=== PATIENT | male | born 1970 | race American Indian/Alaskan Native ===

== ENCOUNTER 2022-02-12 17:49 | Emergency (ER) | payer SELFPAY ==
[2022-02-12] MEDS ORDERED: ASPIRIN 81 MG TAB CHEW PO ONE (18:15)
--- NOTE | 2022-02-12 18:45 | XRay Report ---
CHEST 2 VIEWS INDICATION / CLINICAL INFORMATION: chest pain. FINDINGS: SUPPORT DEVICES: None. HEART / MEDIASTINUM: No significant abnormality. LUNGS / PLEURA: No significant pulmonary or pleural abnormality. No pneumothorax. ADDITIONAL FINDINGS: No significant additional findings. IMPRESSION: 1. No acute findings. Signer Name: Alexis Teixeira MD Signed: 02/12/2022 6:41 PM Workstation Name: [id number]
[2022-02-12 19:25] LABS: Basophils # (Auto) 0.1 K/mm3 (0.0-0.1); Eosinophils # (Auto) 0.1 K/mm3 (0.0-0.4); Eosinophils % (Auto) 2.4 % (0.0-4.3); Hematocrit 46.3 % (35.5-45.6); Hemoglobin 15.5 gm/dl (11.8-15.2); Lymphocytes % (Auto) 26.5 % (13.4-35.0); Mean Corpuscular HGB Conc 34 % (32-34); Mean Corpuscular Volume 87 fl (84-94); Monocytes # (Auto) 0.4 K/mm3 (0.0-0.8); Monocytes % (Auto) 11.5 % (0.0-7.3); Platelet Count 213 K/mm3 (140-440); Red Blood Count 5.29 M/mm3 (3.65-5.03); Red Cell Distribution Width 14.1 % (13.2-15.2)
[2022-02-12 19:41] LABS: Alanine Aminotransferase 19 units/L (7-56); Albumin 4.7 g/dL (3.9-5); BUN/Creatinine Ratio 19; Blood Urea Nitrogen 15 mg/dL (9-20); Hemolysis Index 5
--- NOTE | 2022-02-12 19:41 | Emergency Department Report ---
ED Chest Pain HPI - General Chief Complaint: Chest Pain Stated Complaint: CHEST/BACK PAIN/HBP Time Seen by Provider: 02/12/22 19:10 Source: patient Mode of arrival: Ambulatory Limitations: No Limitations - History of Present Illness Initial Comments: Chief complaint: Chest pain back pain HPI: This a 51-year-old male with history of tobacco and alcohol dependence who presents with chest pain and back pain for the last 3 days. He has chest and back burning sensation when he walks. No symptoms at rest. He denies shortness of breath. Denies recent travel. Denies nausea vomiting. No family history of heart attack. There is a family history of diabetes and hypertension. Patient smokes cigarettes 1 pack/day. He drinks 3 cups of alcohol daily. He does not have a primary physician. MD Complaint: chest pain -: Gradual, days(s) (3 days) Onset: during exertion Pain Location: substernal Pain Radiation: back Severity scale (0 -10): 8 Quality: other (Burning sensation) Consistency: intermittent, now resolved Improves With: rest Worsens With: exertion Treatments Prior to Arrival: none - Related Data Allergies Allergy/AdvReac Type Severity Reaction Status Date / Time No Known Allergies Allergy Unverified 02/12/22 17:56 Heart Score - HEART Score History: Slightly suspicious EKG: Normal Age: 45-65 Risk factors: 1-2 risk factors Troponin: < normal limit HEART Score: 2 - EKG Read Time Time EKG Completed: 18:12 EKG Read Time: 18:17 - Critical Actions Critical Actions: 0-3 pts:0.9-1.7%risk of adverse cardiac event.Candidate for discharge ED Review of Systems ROS: Stated complaint: CHEST/BACK PAIN/HBP Other details as noted in HPI Comment: All other systems reviewed and negative Constitutional: denies: chills, fever, malaise Respiratory: denies: cough, shortness of breath Cardiovascular: chest pain Gastrointestinal: denies: abdominal pain, nausea, vomiting Musculoskeletal: back pain ED Past Medical Hx - Past Medical History Previous Medical History?: No - Surgical History Past Surgical History?: No - Family History Family history: diabetes, hypertension - Social History Smoking Status: Current Every Day Smoker Substance Use Type: Alcohol ED Physical Exam - General Limitations: No Limitations General appearance: alert, in no apparent distress - Head Head exam: Present: atraumatic, normocephalic - Eye Eye exam: Present: PERRL, conjunctival injection. Absent: scleral icterus - ENT ENT exam: Present: mucous membranes moist - Neck Neck exam: Present: normal inspection, full ROM - Respiratory Respiratory exam: Present: normal lung sounds bilaterally. Absent: respiratory distress, wheezes, rales, rhonchi - Cardiovascular Cardiovascular Exam: Present: regular rate, normal rhythm, normal heart sounds. Absent: systolic murmur, diastolic murmur, rubs, gallop - GI/Abdominal GI/Abdominal exam: Present: soft, normal bowel sounds. Absent: distended, tenderness, guarding, rebound - Rectal Rectal exam: Present: deferred - Extremities Exam Extremities exam: Present: normal inspection - Back Exam Back exam: Present: normal inspection, full ROM - Neurological Exam Neurological exam: Present: alert, oriented X3 - Psychiatric Psychiatric exam: Present: normal affect, normal mood - Skin Skin exam: Present: warm, dry, intact, normal color. Absent: rash ED Course Vital Signs 02/12/22 18:00 Temperature 97.4 F L Pulse Rate 66 Respiratory 18 Rate Blood Pressure 145/107 [Right] O2 Sat by Pulse 98 Oximetry ED Medical Decision Making - Lab Data Result diagrams: 02/12/22 19:03 02/12/22 19:03 - EKG Data -: EKG Interpreted by Mi EKG shows normal: sinus rhythm, axis, intervals, QRS complexes, ST-T waves Rate: normal - EKG Data Interpretation: normal EKG - Radiology Data Radiology results: report reviewed Patient Name: IDALIA HOGUE Gender: Male Date of : 1970 Home Phone: Referring Provider: FAVIAN ARIAS Organization: [facility] Accession Number: [id number] Requested Date: February 12, 2022 18:13 Report Status: Final Requested Procedure: 1 Procedure Description: XR chest routine 2V Modality: XR Findings Reporting MD: Alexis Teixeira Dictation Time: February 12, 2022 17:41 Seismic Survey Assistant: Not available Administrative Support Manager Date: CHEST 2 VIEWS INDICATION / CLINICAL INFORMATION: chest pain. FINDINGS: SUPPORT DEVICES: None. HEART / MEDIASTINUM: No significant abnormality. LUNGS / PLEURA: No significant pulmonary or pleural abnormality. No pneumothorax. ADDITIONAL FINDINGS: No significant additional findings. IMPRESSION: 1. No acute findings. Signer Name: Alexis Teixeira MD Signed: 02/12/2022 5:41 PM Workstation Name: [id number] - Medical Decision Making Chest pain radiating to the back suggestive of stable angina versus esophagitis. Heart score 2 I have faxed referral to [facility] for outpatient cardiac ev aluation. Also given patient referral to PCP. Recommended smoking cessation. Critical care attestation.: If time is entered above; I have spent that time in minutes in the direct care of this critically ill patient, excluding procedure time. ED Disposition Clinical Impression: Stable angina Disposition: 01 HOME / SELF CARE / HOMELESS Is pt being admited?: No Does the pt Need Aspirin: No Condition: Stable Instructions: Angina, [id number] Referrals: SABRINA SULLIVAN MD [Staff Physician] - 2-3 Days AVERY JARQUIN MD [Staff Physician] - 3-5 Days
[2022-02-12 22:20] VITALS: BP 146/90
--- NOTE | 2022-02-14 09:00 | Electrocardiograph Report ---
[facility] Test Date: 2022-02-12 Test Time: 18:12:03 Pat Name: IDALIA HOGUE Department: Room: Gender: M Grade Setter: WILLIE : 1970 Requested By: FAVIAN ARIAS Order Number: [id number] Reading MD: Abdelrahman Toussaint Measurements Intervals [place] Rate: 55 P: 48 WI: 191 QRS: 25 QRSD: 90 T: 42 QT: 416 QTc: 397 Interpretive Statements Sinus rhythm Normal ECG No previous ECG available for comparison Electronically Signed On 02-14-2022 8:59:56 EDT by Abdelrahman Toussaint
== END 2022-02-12 22:18 | disposition home or self-care (01) ==
LOC: ED 17:49
DX: I20.8 Other forms of angina pectoris (principal); F17.200 Nicotine dependence, unspecified, uncomplicated; F10.20 Alcohol dependence, uncomplicated
CPT/HCPCS: 36415; 71046; 80053; 84484; 85025; 93005; 99284